=== PATIENT | male | born 1970 | race African-American/Black ===

== ENCOUNTER 2016-06-29 08:20 | Emergency (ER) | payer OTHER ==
[~2016-06-29] VITALS: Ht 175.3 cm; Wt 93.0 kg
[2016-06-29 08:22] VITALS: BP 155/80; PULSE 98; RESP 14; TEMP 98.9; O2SAT 99
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
[2016-06-29] MEDS ORDERED: DIAZEPAM 5 MG TAB PO ONE (09:15)
[2016-06-29] MEDS ORDERED: ACETAMINOPHEN 325 MG TAB PO ONE (09:15)
[2016-06-29] MEDS ORDERED: KETOROLAC TROMETHAMINE 60 MG/2 ML (IM) VIAL IM ONE (09:45)
[2016-06-29] MEDS ORDERED: IBUP-232 PO (11:11)
[2016-06-29 11:54] VITALS: BP 120/79
== END 2016-06-29 11:55 | disposition home or self-care (01) ==
LOC: NEPE 08:20
DX: R51 Headache (principal); M54.2 Cervicalgia; V43.62XA Car passenger injured in collision with other type car in traffic accident, initial encounter
CPT/HCPCS: 96372; 99283; J1885

== ENCOUNTER 2017-03-18 16:48 | Emergency (ER) | payer SELFPAY ==
[~2017-03-18] VITALS: Ht 175.3 cm; Wt 95.5 kg
[~2017-03-18 16:48] MED LIST: IBUP-232 PO
[2017-03-18 16:50] VITALS: BP 140/60; PULSE 62; RESP 12; TEMP 98.4; O2SAT 98
--- NOTE | 2017-03-18 17:46 | PD ---
HPI Chief Complaint: Cold / Flu Symptoms Time Seen by Provider: 17:45 Travel History International Travel<30 days: No Contact w/Intl Traveler<30days: No Traveled to known affect area: No History of Present Illness HPI 46-year-old Afro-[place] male presents to emergency department with nausea and vomiting for the past 4 days. He states he started with flulike symptoms approximately a week ago which is now improved, but he can't keep anything down for the past several days. Patient denies current fever, although he woke in a sweat this morning. Patient denies upper respiratory symptoms, cough, chest pain, or diarrhea, but he hasn't had, since he stopped eating. She states he is still urinating but with decreased output. He has generalized abdominal pain nothing specific. No history of abdominal surgeries. The last time the patient threw up with swallowing. He has no known drug allergies. PFSH Past Medical History Diminished Hearing: No Social History Alcohol Use: Yes (ocassionally) Tobacco Use: Yes (1/2 pack per day) Substance Use: No Allergies-Medications (Allergen,Severity, Reaction): Coded Allergies: No Known Allergies (Unverified Adverse Reaction, Unknown, 03/18/17) Reported Meds & Prescriptions Reported Meds & Active Scripts Active Zofran (Ondansetron HCl) 4 Mg Tab 4 Mg PO Q6HR PRN Ibuprofen 600 Mg Tab 600 Mg PO Q8HR PRN Review of Systems Except as stated in HPI: all other systems reviewed are Neg General / Constitutional: No: Fever, Chills Eyes: No: Visual changes HENT: No: Headaches, Vertigo, Lightheadedness, Sore Throat, Rhinitis, Rhinorrhea, Congestion, Nosebleed, Neck Stiffness, Neck Pain, Dental Difficulties, Earache Cardiovascular: No: Chest Pain or Discomfort Respiratory: No: Cough, Shortness of Breath, Wheezing Gastrointestinal: Positive: Nausea, Vomiting, Abdominal Pain, Loss of Appetite , No: Diarrhea, Hematemesis, Hematochezia Genitourinary: No: Dysuria Musculoskeletal: No: Pain Skin: No Rash Neurologic: No: Weakness Psychiatric: No: Depression Endocrine: No: Polydipsia Hematologic/Lymphatic: No: Easy Bruising Physical Exam Narrative GENERAL: Patient appears in no obvious distress SKIN: Warm and dry. Normal color. Normal turgor. HEAD: Atraumatic. Normocephalic. EYES: Pupils equal and round. No scleral icterus. No injection or drainage. ENT: No nasal bleeding or discharge. Mucous membranes pink and moist. Pharynx is unremarkable. Pharynx is clear. TMs are clear bilaterally. NECK: Trachea midline. Supple and nontender. CARDIOVASCULAR: Regular rate and rhythm. RESPIRATORY: No accessory muscle use. Clear to auscultation. Breath sounds equal bilaterally. GASTROINTESTINAL: Abdomen soft, mild diffuse tenderness, nondistended. Bowel sounds are hyperactive throughout. No point tenderness or rebound. No CVA tenderness noted. Hepatic and splenic margins not palpable. MUSCULOSKELETAL: Extremities without clubbing, cyanosis, or edema. No obvious deformities. NEUROLOGICAL: Awake and alert. No obvious cranial nerve deficits. Motor grossly within normal limits. Five out of 5 muscle strength in the arms and legs. Normal speech. PSYCHIATRIC: Appropriate mood and affect; insight and judgment normal. Data Data Last Documented VS Vital Signs Date Time Temp Pulse Resp B/P (MAP) Pulse Ox O2 Delivery O2 Flow Rate FiO2 03/18/17 19:34 63 18 107/67 (80) 99 Room Air 03/18/17 16:50 98.4 Orders Orders Complete Blood Count With Diff (03/18/17 17:49) Comprehensive Metabolic Panel (03/18/17 17:49) Lipase (03/18/17 17:49) Urinalysis - C+S If Indicated (03/18/17 17:49) Abdomen, Flat & Upright (03/18/17 ) Iv Access Insert/Monitor (03/18/17 17:49) Ecg Monitoring (03/18/17 17:49) Oximetry (03/18/17 17:49) NPO (03/18/17 17:49) Ondansetron Inj (Zofran Inj) (03/18/17 18:00) Sodium Chlor 0.9% 1000 Ml Inj (Ns 1000 M (03/18/17 17:49) Sodium Chloride 0.9% Flush (Ns Flush) (03/18/17 18:00) Famotidine Inj (Pepcid Inj) (03/18/17 18:00) Sodium Chlor 0.9% 1000 Ml Inj (Ns 1000 M (03/18/17 18:30) Labs Laboratory Tests Test 03/18/17 18:00 White Blood Count 7.8 TH/MM3 Red Blood Count 3.91 MIL/MM3 Hemoglobin 12.3 GM/DL Hematocrit 35.7 % Mean Corpuscular Volume 91.4 FL Mean Corpuscular Hemoglobin 31.4 PG Mean Corpuscular Hemoglobin Concent 34.3 % Red Cell Distribution Width 12.5 % Platelet Count 236 TH/MM3 Mean Platelet Volume 7.5 FL Neutrophils (%) (Auto) 62.6 % Lymphocytes (%) (Auto) 26.2 % Monocytes (%) (Auto) 10.1 % Eosinophils (%) (Auto) 0.5 % Basophils (%) (Auto) 0.6 % Neutrophils # (Auto) 4.9 TH/MM3 Lymphocytes # (Auto) 2.0 TH/MM3 Monocytes # (Auto) 0.8 TH/MM3 Eosinophils # (Auto) 0.0 TH/MM3 Basophils # (Auto) 0.0 TH/MM3 CBC Comment DIFF FINAL Differential Comment Blood Urea Nitrogen 10 MG/DL Creatinine 1.15 MG/DL Random Glucose 96 MG/DL Total Protein 7.8 GM/DL Albumin 3.5 GM/DL Calcium Level 8.8 MG/DL Alkaline Phosphatase 77 U/L Aspartate Amino Transf (AST/SGOT) 27 U/L Alanine Aminotransferase (ALT/SGPT) 16 U/L Total Bilirubin 0.6 MG/DL Sodium Level 136 MEQ/L Potassium Level 4.2 MEQ/L Chloride Level 101 MEQ/L Carbon Dioxide Level 26.3 MEQ/L Anion Gap 9 MEQ/L Estimat Glomerular Filtration Rate 84 ML/MIN Lipase 181 U/L [facility] Medical Decision Making Medical Screen Exam Complete: Yes Emergency Medical Condition: Yes Differential Diagnosis Nausea and vomiting. Viral illness. Colitis. Ileus. Dehydration. Narrative Course Patient is medically stable at time of exam. Laboratory including CBC, CMP, lipase, urinalysis. IV access is obtained patient is given 4 mg Zofran IV as well as 20 mg Pepcid IV. Patient is given 1000 mL normal saline bolus. KUB is ordered and read as unremarkable per radiologist. No signs of ileus or obstruction. Labs are unremarkable. Patient will be treated with Zofran 4 mg every 6 hours when necessary #12. She is to rest, push fluids, bland diet and follow-up as needed. Work note is given for the next 2 days. Diagnosis Primary Impression: Gastroenteritis and colitis, viral Referrals: [facility] Patient Instructions: Acute Nausea and Vomiting (ED), Dehydration (DC), General Instructions Departure Forms: Work Release Enter return to work date: Mar 21, 2017 Additional Instructions: Patient will be treated with Zofran 4 mg every 6 hours when necessary #12. She is to rest, push fluids, bland diet and follow-up as needed. Work note is given for the next 2 days. Med/Other Pt SpecificInfo: Prescription(s) given Scripts Ondansetron (Zofran) 4 Mg Tab 4 MG PO Q6HR Y for NAUSEA OR VOMITING, #12 TAB 0 Refills Prov: Darien Jordan MD 03/18/17 Disposition: 01 DISCHARGE HOME Condition: Stable Jos Howell Mar 18, 2017 17:45
[2017-03-18] MEDS ORDERED: SODIUM CHLOR 0.9% 1000 ML INJ 1,000 ML IV SCH (17:49)
[2017-03-18] MEDS ORDERED: FAMOTIDINE 20 MG/2 ML VIAL IV PUSH ONE (18:00)
[2017-03-18] MEDS ORDERED: SODIUM CHLORIDE 0.9% FLUSH 10 ML FLUSH IV FLUSH PRN (18:00)
[2017-03-18] MEDS ORDERED: ONDANSETRON HCL 4 MG/2 ML VIAL IVP ONE (18:00)
[2017-03-18 18:10] VITALS: O2SAT 100
[2017-03-18 18:19] LABS: AUTOMATED NEUTROPHIL # 4.9 TH/MM3 (1.8-7.7); BASOPHIL % 0.6 % (0.0-2.0); EOSINOPHIL % 0.5 % (0.0-4.0); HEMATOCRIT 35.7 % (39.0-51.0); HEMOGLOBIN 12.3 GM/DL (13.0-17.0); LYMPH % 26.2 % (9.0-44.0); MEAN CELL VOLUME 91.4 FL (80.0-100.0); MEAN CORPUSCULAR HEMOGLOBIN 31.4 PG (27.0-34.0); MEAN CORPUSCULAR HGB CONC 34.3 % (32.0-36.0); MEAN PLATELET VOLUME 7.5 FL (7.0-11.0); MONO % 10.1 % (0.0-8.0); MONOCYTE # 0.8 TH/MM3 (0-0.9); NEUT % 62.6 % (16.0-70.0); PLATELET COUNT 236 TH/MM3 (150-450); RED BLOOD COUNT 3.91 MIL/MM3 (4.50-5.90); RED CELL DISTRIBUTION WIDTH 12.5 % (11.6-17.2); WHITE BLOOD COUNT 7.8 TH/MM3 (4.0-11.0)
[2017-03-18] MEDS ORDERED: SODIUM CHLOR 0.9% 1000 ML INJ 1,000 ML IV ONE (18:30)
--- NOTE | 2017-03-18 18:32 | RADRPT ---
EXAM DATE/TIME: 03/18/2017 18:05 [facility] COMPARISON: No previous studies available for comparison. INDICATIONS : Patient complains of abdominal pain and vomiting. MEDICAL HISTORY : None. SURGICAL HISTORY : None. ENCOUNTER: Initial ACUITY: 4 - 6 days PAIN SCORE: 5/10 LOCATION: Abdomen FINDINGS: Supine and upright views of the abdomen were performed. The abdominal bowel gas pattern is normal. No air fluid levels are seen. No abnormal masses, calcifications, or organomegaly is seen. The visu alized lower lungs are clear. No evidence of free intraperitoneal gas. Chronic appearing irregularity of the pubic symphysis noted, probably on the basis of remote trauma. CONCLUSION: Benign-appearing abdomen. Rogelio Gray MD on March 18, 2017 at 18:29 Board Certified Radiologist. This report was verified electronically.
[2017-03-18 18:45] LABS: ALT (GPT) 16 U/L (12-78)
[2017-03-18 18:46] LABS: ALKALINE PHOSPHATASE 77 U/L (45-117); TOTAL BILIRUBIN ADULT 0.6 MG/DL (0.2-1.0); TOTAL PROTEIN 7.8 GM/DL (6.4-8.2)
[2017-03-18 19:03] LABS: ALBUMIN 3.5 GM/DL (3.4-5.0); AST (GOT) 27 U/L (15-37); BICARBONATE 26.3 MEQ/L (21.0-32.0); BLOOD UREA NITROGEN 10 MG/DL (7-18); CALCIUM 8.8 MG/DL (8.5-10.1); CHLORIDE 101 MEQ/L (98-107); CREATININE 1.15 MG/DL (0.60-1.30); GLOMERULAR FILTRATION RATE 84 ML/MIN (>89); GLUCOSE,RANDOM 96 MG/DL (74-106); LIPASE 181 U/L (73-393); SODIUM (NA) 136 MEQ/L (136-145)
[2017-03-18 19:34] VITALS: BP 107/67; PULSE 63; RESP 18; O2SAT 99
[2017-03-18] MEDS ORDERED: ZOFR4TAB PO (19:43)
[2017-03-18 20:26] LABS: BILIRUBIN, URINE NEG (NEG); BLOOD, URINE NEG (NEG); GLUCOSE,URINE NEG (NEG); KETONE, URINE NEG (NEG); MUCUS URINE FEW /lpf (OCC); NITRITE,URINE NEG (NEG); URINE COLOR YELLOW (YELLW/STRAW); URINE LEUKOCYTE ESTERASE NEG (NEG)
== END 2017-03-18 20:55 | disposition home or self-care (01) ==
LOC: NEPC 16:48
DX: A08.4 Viral intestinal infection, unspecified (principal); F17.200 Nicotine dependence, unspecified, uncomplicated
CPT/HCPCS: 74019; 80053; 81001; 83690; 85025; 96361; 96374; 96375; 99284; J2405; J7030